=== PATIENT | female | born 2000 | race Caucasian/White ===

== ENCOUNTER 2023-12-06 14:41 | Outpatient (CLI) | payer MEDICAID | END 2023-12-06 23:59 | disposition home or self-care (01) | LOC: RAD 14:41 | PROVIDERS: ATTEND Nurse Practitioner Primary Care | DX: M79.644 Pain in right finger(s) (principal) | CPT/HCPCS: 73130 ==

== ENCOUNTER 2025-01-31 09:49 | Outpatient (CLI) | payer MEDICAID ==
--- NOTE | 2025-01-31 21:36 | RADIOLOGY REPORT ---
ULTRASOUND OF THE PELVIS (NON-OB) FEMALE INDICATION: POLYCYSTIC OVARIAN SYNDROME. LMP 01/10/2025. COMPARISON: None TECHNIQUE AND FINDINGS: Transabdominal Ultrasound: Transabdominal ultrasound examination was performed. Endovaginal Ultrasound: Endovaginal ultrasound was deferred as the patient is not sexually active. UTERUS: The uterus is retroverted and measures 8.9 x 3.9 x 5.8 cm. No focal uterine abnormality is se en. The endometrial stripe is 2 mm in thickness, within normal limits. RIGHT OVARY: The right ovary measures 3.1 x 2.0 x 1.9 cm. The right ovary is normal in appearance wit h expected Doppler flow. There is no evidence of abnormal adnexal mass. LEFT OVARY: The left ovary measures 3.4 x 2.2 x 2.4 cm. The left ovary is normal in appearance with expected Doppler flow. There is no evidence of abnormal adnexal mass. CUL de SAC: No evidence of pelvic free fluid or mass. IMPRESSION: Normal pelvic ultrasound. The ovaries are not enlarged. No ovarian cyst is identified. COMMENT: Both transabdominal ultrasound and endovaginal ultrasound were performed; the above impressi on reflects the composite impression from these two studies. No additional comment.
== END 2025-01-31 23:59 | disposition home or self-care (01) ==
LOC: RAD 09:49
PROVIDERS: ATTEND Nurse Practitioner Family
DX: E28.2 Polycystic ovarian syndrome (principal)
CPT/HCPCS: 76856; 93976